=== PATIENT | male | born 1990 | race Caucasian/White ===

== ENCOUNTER 2022-10-31 11:35 | Emergency (ER) | payer OTHER ==
[~2022-10-31] VITALS: Ht 182.9 cm; Wt 72.6 kg
[2022-10-31] MEDS ORDERED: HYDROCODON-ACE1 EA10 PO (13:48)
[2022-10-31 13:59] VITALS: BP 116/70
== END 2022-10-31 14:00 | disposition home or self-care (01) ==
LOC: ED 11:35
DX: S62.002A Unspecified fracture of navicular [scaphoid] bone of left wrist, initial encounter for closed fracture (principal); S62.001A Unspecified fracture of navicular [scaphoid] bone of right wrist, initial encounter for closed fracture; W18.09XA Striking against other object with subsequent fall, initial encounter
CPT/HCPCS: 73110; 99283-25